=== PATIENT | female | born 1955 | race Caucasian/White ===

== ENCOUNTER 2018-03-14 18:39 | Inpatient (IN) | payer MEDICARE, MEDICAID ==
--- NOTE | 2018-03-14 19:35 | ED Physician Chart ---
ED Chief Complaint/HPI - Patient Information Allergies:: Allergies Allergy/AdvReac Type Severity Reaction Status Date / Time Penicillins Allergy Verified 03/14/18 18:50 Vitals:: Vital Signs - 8 hr 03/14/18 18:54 Temp 98.0 F HR 61 RR 17 BP 182/71 O2 Sat % 97 ED Past Medical History - Past Medical History Past Medical History: Other (artificial heart valve per patient (only on subq heparin)) Family Medical History - Family Member Mother History Unknown: Yes ED Physical Exam - Physical Examination General/Constitutional: Awake, Well-developed, well-nourished, Alert, No distress, GCS 15, Non-toxic appearing, Ambulatory Head: Atraumatic Eyes: Lids, conjuctiva normal, PERRL, EOMI Skin: Nl inspection, No rash, No skin lesions, No ecchymosis, Well hydrated, No lymphadenopathy Other Skin comments:: midline sternotomy scar. ENMT: External ears, nose nl, Nasal exam nl, Lips, teeth, gums nl Neck: Nontender, Full ROM w/o pain, No JVD, No nuchal rigidity, No bruit, No mass, No stridor Respiratory: Nl effort/Exclusion, No Wheeze/Rhonchi/Rales Other Respiratory comments:: faint rales on examination. Cardio Vascular: RRR Other Cardio Vascular comments:: faint systolic murmur. GI: No tenderness/rebounding/guarding, No organomegaly, No hernia, Normal BS's, Nondistended, No mass/bruits, No McBurney tenderness Other GI comments:: large RUQ scar from prior cholecystectomy. : No CVA tenderness Extremities: No tenderness or effusion, Full ROM, normal strength in all extremities, No edema, Normal digits & nails Neuro/Psych: Alert/oriented, DTR's symmetric, Normal sensory exam, Normal motor strength, Judgement/insight normal, Mood normal, Normal gait, No focal deficits Misc: Normal back, No paraspinal tenderness ED Assessment - Assessment General Assessment: EKG from 7:51:22 p.m. reveals sinus bradycardia with a heart rate of 56, probable left atrial enlargement, LVH with secondary repolarization abnormality. Flipped t wave in I, AVL, V4-V5. CXR: cardiomegaly (from my reading) with vascular redistribution. Called and spoke with Dr. Zendejas and presented this patient to him. He will admit her to the hospital. Conversation at 21:35 p.m. ED Septic Shock - . Is Septic Shock (SBP<90, OR Lactate>4 mmol\L) present?: No - <6hrs of presentation: Vital Signs: Vital Signs - 8 hr 03/14/18 18:54 Temp 98.0 F HR 61 RR 17 BP 182/71 O2 Sat % 97 ED Reassessment (Disposition) - Diagnosis Diagnosis:: Cardiomegaly Congestive Heart Failure Urinary Tract Infection Renal insufficiency
[2018-03-14 19:54] LABS: % BASOPHILS 0.8 % (0.0-2.0); % EOSINOPHILS 4.3 % (0.0-5.0); % MONOCYTES 6.4 % (2.0-10.0); % NEUTROPHILS 56.5 % (40.0-80.0); BASOPHILE ABSOLUTE 0.1 Th/cumm (0-0.2); EOSINOPHILE ABSOLUTE 0.3 Th/cmm (0.1-0.4); HEMATOCRIT 29.6 % (41.0-60); HEMOGLOBIN 10.2 gm/dL (12-16); LYMPHOCYTE ABSOLUTE 2.2 Th/cmm (1.5-3.0); MEAN CELL VOLUME 92.3 fl (81-100); MEAN CORPUSCULAR HEMOGLOBIN 31.8 pg (27.0-31.0); MEAN CORPUSCULAR HGB CONC 34.4 pg (28.0-36.0); MEAN PLATELET VOLUME 9.7 fl; MONOCYTE ABSOLUTE 0.4 Th/cmm (0.3-1.0); NEUTROPHILE ABSOLUTE 3.8 Th/cmm (1.8-8.0); PLATELET COUNT 209 Th/cmm (150-400); RED BLOOD COUNT 3.21 Mil/cmm (3.80-5.10); RED CELL DISTRIBUTION WIDTH 11.9 % (11.5-20.0); WHITE BLOOD COUNT 6.8 Th/cmm (4.8-10.8)
[2018-03-14 20:04] LABS: URINE MICROSCOPIC INDICATED? YES; URINE SOURCE CLEAN C
[2018-03-14 20:06] LABS: URINE BILIRUBIN NEGATIVE (NEGATIVE); URINE BLOOD SMALL (NEGATIVE); URINE GLUCOSE (UA) NEGATIVE (NEGATIVE); URINE KETONE NEGATIVE (NEGATIVE); URINE LEUKOCYTE ESTERASE MODERATE (NEGATIVE); URINE NITRATE NEGATIVE (NEGATIVE); URINE PH 6.5 (4.6 - 8.0); URINE PROTEIN 100 mg/dL (NEGATIVE); URINE UROBILINOGEN 0.2 E.U./dL (0.2 - 1.0)
[2018-03-14 20:07] LABS: ALB/GLOB RATIO 1.2 (1.0-1.8); ALBUMIN 3.9 gm/dL (3.7-5.3); CALCIUM SERUM 9.4 mg/dL (8.6-10.3); CARBON DIOXIDE 26.9 mEq/L (21.0-31.0); CREATININE - SERUM 1.6 mg/dL (0.6-1.2); GFR AFRICAN-AMERICAN 42.1 ml/min (>90); GFR NON AFRICAN-AMERICAN 34.8 ml/min; MAGNESIUM 1.9 mg/dL (1.9-2.7); PHOSPHOROUS 3.8 mg/dL (2.5-5.0); POTASSIUM SERUM 3.9 mEq/L (3.5-5.1); TOTAL PROTEIN,SERUM 7.1 gm/dL (6.0-8.3)
[2018-03-14 20:18] LABS: URINE CLARITY HAZY (CLEAR); URINE COLOR YELLOW
[2018-03-14 20:20] LABS: URINE RBC 0-2 /hpf (0-5)
[2018-03-14 20:21] LABS: URINE BACTERIA FEW /hpf (NONE SEEN); URINE EPITHELIAL CELLS OCCASIONAL /lpf (FEW)
[2018-03-14 20:27] LABS: AMPHETAMINE URINE NEGATIVE (NEGATIVE); BARBITURATES URINE NEGATIVE (NEGATIVE); BENZODIAZEPINES QUAL URINE NEGATIVE (NEGATIVE); CANNABINOID THC NEGATIVE (NEGATIVE); COCAINE METABOLITE QUAL URINE NEGATIVE (NEGATIVE); METHADONE URINE NEGATIVE (NEGATIVE); METHAMPHETAMINES QUAL URINE NEGATIVE (NEGATIVE); OPIATES (MORPHINE) QUAL. URINE NEGATIVE (NEGATIVE); PHENCYCLIDINE (PCP) URINE NEGATIVE (NEGATIVE); TRICYCLICS (TCA) QUAL. URINE NEGATIVE (NEGATIVE)
[2018-03-14 20:46] LABS: URINE WBC 25-50 /hpf (0-5)
[2018-03-14] MEDS ORDERED: Sulfamethoxazole/TMP 800/160mg Tab PO ONE (21:26)
[2018-03-14 23:22] VITALS: BP 164/61
[2018-03-14] MEDS: Levofloxacin 250mg/50mL 250 MG/50 ML BAG IV SCH (23:32)
[2018-03-15 06:40] LABS: % BASOPHILS 0.6 % (0.0-2.0); % EOSINOPHILS 4.4 % (0.0-5.0); % LYMPHOCYTES 28.2 % (20.0-50.0); % MONOCYTES 6.5 % (2.0-10.0); % NEUTROPHILS 60.3 % (40.0-80.0); EOSINOPHILE ABSOLUTE 0.3 Th/cmm (0.1-0.4); HEMATOCRIT 28.1 % (41.0-60); HEMOGLOBIN 9.6 gm/dL (12-16); LYMPHOCYTE ABSOLUTE 1.7 Th/cmm (1.5-3.0); MEAN CELL VOLUME 92.8 fl (81-100); MEAN CORPUSCULAR HEMOGLOBIN 31.7 pg (27.0-31.0); MEAN CORPUSCULAR HGB CONC 34.1 pg (28.0-36.0); MEAN PLATELET VOLUME 9.6 fl; MONOCYTE ABSOLUTE 0.4 Th/cmm (0.3-1.0); NEUTROPHILE ABSOLUTE 3.6 Th/cmm (1.8-8.0); PLATELET COUNT 196 Th/cmm (150-400); RED BLOOD COUNT 3.03 Mil/cmm (3.80-5.10); RED CELL DISTRIBUTION WIDTH 11.9 % (11.5-20.0)
[2018-03-15 07:44] LABS: ALB/GLOB RATIO 1.2 (1.0-1.8); ALBUMIN 3.6 gm/dL (3.7-5.3); ANION GAP 12.4 (7.0-16.0); BILIRUBIN,TOTAL 0.7 mg/dL (0.3-1.0); CALCIUM SERUM 9.1 mg/dL (8.6-10.3); CARBON DIOXIDE 23.5 mEq/L (21.0-31.0); CREATININE - SERUM 1.6 mg/dL (0.6-1.2); GFR AFRICAN-AMERICAN 42.1 ml/min (>90); GFR NON AFRICAN-AMERICAN 34.8 ml/min; POTASSIUM SERUM 3.9 mEq/L (3.5-5.1); TOTAL PROTEIN,SERUM 6.5 gm/dL (6.0-8.3)
--- NOTE | 2018-03-15 09:15 | Diagnostic Imaging Report ---
Portable chest x-ray Time: 10 History: Congestive heart failure Allowing for portable technique the heart size is normal. No focal pulmonary parenchymal processes. No hilar or mediastinal abnormalities. Impression: No acute abnormalities.
[2018-03-15] MEDS ORDERED: ROSUVASTATIN CALCIUM 5 MG PO SCH (11:00)
[2018-03-15] MEDS: Aspirin 81mg Chewable Tab PO SCH (12:09)
--- NOTE | 2018-03-15 13:33 | History & Physical ---
ADMIT DATE: 03/15/2018 CHIEF COMPLAINT: Weakness. HISTORY OF PRESENT ILLNESS: This is a 62-year-old female who was admitted through the Emergency Room with chief complaint of generalized weakness. The patient is unable to specify for how many days she has been having generalized weakness. REVIEW OF SYSTEMS: GENERAL: This is a 62-year-old female that appears as stated. Positive weakness. Denies dizziness. Denies fever. HEENT: Head: Denies any headache. Eyes: Denies blurring of vision. Denies eye pain. NECK: Denies neck pain. Denies nuchal rigidity. CHEST: Denies chest pain. Denies palpitation. PULMONARY: Denies coughing. Denies shortness of breath. GASTROINTESTINAL: Denies abdominal pain. Denies diarrhea. Denies constipation. MUSCULOSKELETAL: Denies joint pain. Denies muscle pain. SOCIAL HISTORY: Per the patient, she lives at home with family. Denies nicotine and alcohol use. PSYCHIATRIC HISTORY: Unremarkable. FAMILY HISTORY: Unremarkable. PAST SURGICAL HISTORY: Per the patient, she had an artificial valve replacement 20+ years ago. PAST MEDICAL HISTORY: Includes hypertension, coronary artery disease, hyperlipidemia, and osteoarthritis. PHYSICAL EXAMINATION: VITAL SIGNS: Temperature 97.8, heart rate 62, blood pressure 146/64, respiration of 14, 95% on room air. HEENT: Head is atraumatic and normocephalic. Eyes: Bilateral conjunctivae are clear. Bilateral pupils are equally round and reactive. NECK: Supple. No JVD. CARDIOVASCULAR: S1 and S2, without murmur. PULMONARY: Clear to auscultation. GASTROINTESTINAL: Soft and nontender without guarding. Positive bowel sounds. MUSCULOSKELETAL: No clubbing. No cyanosis noted. ASSESSMENT: 1. Congestive heart failure. 2. Urinary tract infection. 3. Cardiomegaly. 4. Weakness. PLAN: We will admit the patient to Telemetry Unit. We will follow up with the program developer and also we are going to continue antibiotics for the infection. We will do medication reconciliation accordingly. Treatment plans were discussed with the patient's nurse. Treatment plans were discussed with Dr. Zendejas. JOB# [id number]
--- NOTE | 2018-03-15 17:41 | Consultation ---
DATE OF CONSULTATION: 03/15/2018 AGE OF THE PATIENT: 62 years. SEX: Female. RACE: . HISTORY OF PRESENT ILLNESS: This patient was brought in here because of the fact that the patient does have multiple minor problems and a question of whether she has significant coronary artery disease along with renal failure. On direct questioning, the patient at present says she does not have any significant symptoms at the present time. The patient had diabetes for some time and also had a low-grade hypertension. Twenty years ago, the patient had open heart surgery for valvular abnormality for which she had a correction or probably replacement of the wall and had been treated. Since that time, she has been doing better and at present, not much significant problems. On direct questioning, denies any other problem. The patient does not have any significant family members. She lives in a care home. The patient's temperature 97.8 degrees Fahrenheit, blood pressure is 146/64, heart rate 62, respiratory rate 13 per minute, and saturation 95% on room air. On further questioning, patient denies any problem with shortness of breath, chest pains, diarrhea, vomiting or inability to eat. The patient seemed to be well nourished at least at the present time. Cranial nerves seem to be intact. Jugular venous pressure is not raised. The patient has a midsternal lung scar from the previous surgery. Good air entry bilaterally. No rales or rhonchi. Heart sounds S1, S2 normally heard. No S3 or S4 noticed. Abdomen is soft, nontender. Liver margins are not palpable. No signs of ascites. Lower extremities does not reveal any significant edema. The patient is able to mobilize all the 4 extremities. Gross neurological examination does not reveal any focal abnormality. LABORATORY DATA: Biochemical data available as of today reveals sodium 139, potassium 3.9, chloride 107, CO2 content 23.5, glucose 12.4, BUN 18, creatinine 1.6, calculated GFR 34.8. Troponin is within normal limit. BNP had been elevated yesterday 254, which in my opinion is not very significant because of some underlying renal disease. Urine shows questionable some urinary tract infection because of the fact that the WBCs have been reported as 25-50 yesterday. Creatinine has not changed from yesterday; therefore must be stable chronic creatinine. IMPRESSION: 1. Valvular heart disease with status post open heart surgery for correction about 20 years ago. The patient at present is not having any symptoms relating to that. 2. Chronic renal failure, which she is probably for long-term been going on, but would check it. 3. History of diabetes mellitus. 4. History of hypertension. PLAN AND SUGGESTION: I would suggest that maybe we can do an ultrasound of the abdomen and pelvis so as to evaluate kidneys and bladder as to know what is the baseline, so that we know if there is a progression of renal disease. Otherwise, at present from the renal point of view there is not much to be done. BNP is mildly elevated, but that can happen due to some loss of renal function from probably previous injury or disease process. JOB# [id number]
--- NOTE | 2018-03-15 21:33 | Consultation ---
DATE OF CONSULTATION: 03/15/[address] Zendejas. HISTORY AND PHYSICAL: This is a 62-year-old female patient who was recently admitted to [facility] with chest pain. According to the patient, there was no evidence of ischemia. At this time, the patient was discharge. The patient is brought again to [facility] complaining of generalized weakness, and shortness of breath. PAST MEDICAL HISTORY: Congestive heart failure, diastolic dysfunction, angina, coronary artery bypass, anemia, hyperlipidemia. FAMILY HISTORY: Unremarkable. SOCIAL HISTORY: No history of smoking, alcohol abuse. ALLERGIES: None. PHYSICAL EXAMINATION: VITAL SIGNS: Blood pressure 120/80, pulse 70, respirations 20. HEAD: Normocephalic. No lumps or bumps. EYES: Pupils equal, reactive to light. Fundi show AV nicking, sclerae white, conjunctivae pink. NECK: Carotid 2+. Normal upstroke. JVD flat. Thyroid not palpable. Lymph nodes not palpable. CHEST: Shows increased AP diameter. No kyphosis, scoliosis. LUNGS: Bilateral bronchovesicular breath sounds. HEART: PMI fifth intercostal space with lateral to midclavicular line. S1, S2, S3, S4, soft systolic murmur. ABDOMEN: Soft. Liver, spleen not palpable. No organomegaly. Bowel sounds active. NEUROLOGIC: Unremarkable. EXTREMITIES: Peripheral pulse is 2+. No pedal edema. CLINICAL IMPRESSION: Congestive heart failure, diastolic dysfunction, acute urinary tract infection, cardiomegaly, angina, coronary artery bypass, anemia, hyperlipidemia. PLAN: Admit the patient. We will get echocardiogram for left ventricular function. Continue on Lasix and monitor the patient on telemetry. JOB# [id number]
[2018-03-15] MEDS: Levofloxacin 250mg/50mL 250 MG/50 ML BAG IV SCH (23:17)
[2018-03-16 05:01] LABS: ANION GAP 9.8 (7.0-16.0); CALCIUM SERUM 9.2 mg/dL (8.6-10.3); CREATININE - SERUM 1.9 mg/dL (0.6-1.2); GFR AFRICAN-AMERICAN 34.6 ml/min (>90); GFR NON AFRICAN-AMERICAN 28.6 ml/min; POTASSIUM SERUM 3.8 mEq/L (3.5-5.1)
[2018-03-16] MEDS: Aspirin 81mg Chewable Tab PO SCH (08:19)
--- NOTE | 2018-03-16 10:29 | General Progress Note ---
Subjective - Review of Systems Events since last encounter: patient awake c/o sob + weakness Objective - Results Result Diagrams: 03/15/18 06:30 03/16/18 04:35 Recent Labs: Laboratory Last Values WBC 6.0 Th/cmm (4.8-10.8) 03/15/18 06:30 RBC 3.03 Mil/cmm (3.80-5.10) L 03/15/18 06:30 Hgb 9.6 gm/dL (12-16) L 03/15/18 06:30 Hct 28.1 % (41.0-60) L 03/15/18 06:30 MCV 92.8 fl (81-100) 03/15/18 06:30 MCH 31.7 pg (27.0-31.0) H 03/15/18 06:30 MCHC Differential 34.1 pg (28.0-36.0) 03/15/18 06:30 RDW 11.9 % (11.5-20.0) 03/15/18 06:30 Plt Count 196 Th/cmm (150-400) 03/15/18 06:30 MPV 9.6 fl 03/15/18 06:30 Neutrophils % 60.3 % (40.0-80.0) 03/15/18 06:30 Lymphocytes % 28.2 % (20.0-50.0) 03/15/18 06:30 Monocytes % 6.5 % (2.0-10.0) 03/15/18 06:30 Eosinophils % 4.4 % (0.0-5.0) 03/15/18 06:30 Basophils % 0.6 % (0.0-2.0) 03/15/18 06:30 Sodium 138 mEq/L (136-145) 03/16/18 04:35 Potassium 3.8 mEq/L (3.5-5.1) 03/16/18 04:35 Chloride 107 mEq/L (98-107) 03/16/18 04:35 Carbon Dioxide 25.0 mEq/L (21.0-31.0) 03/16/18 04:35 Anion Gap 9.8 (7.0-16.0) 03/16/18 04:35 BUN 21 mg/dL (7-25) 03/16/18 04:35 Creatinine 1.9 mg/dL (0.6-1.2) H 03/16/18 04:35 Est GFR ( Amer) 34.6 ml/min (>90) 03/16/18 04:35 Est GFR (Non-Af Amer) 28.6 ml/min 03/16/18 04:35 BUN/Creatinine Ratio 11.1 03/16/18 04:35 Glucose 103 mg/dL (70-105) 03/16/18 04:35 Calcium 9.2 mg/dL (8.6-10.3) 03/16/18 04:35 Phosphorus 3.8 mg/dL (2.5-5.0) 03/14/18 19:42 Magnesium 1.9 mg/dL (1.9-2.7) 03/14/18 19:42 Total Bilirubin 0.7 mg/dL (0.3-1.0) 03/15/18 06:30 AST 18 U/L (13-39) 03/15/18 06:30 ALT 9 U/L (7-52) 03/15/18 06:30 Alkaline Phosphatase 54 U/L (34-104) 03/15/18 06:30 Troponin I 0.01 ng/mL (0.01-0.05) 03/15/18 15:11 B-Natriuretic Peptide 254.0 pg/mL (5.0-100.0) H 03/14/18 19:42 Total Protein 6.5 gm/dL (6.0-8.3) 03/15/18 06:30 Albumin 3.6 gm/dL (3.7-5.3) L 03/15/18 06:30 Globulin 2.9 gm/dL 03/15/18 06:30 Albumin/Globulin Ratio 1.2 (1.0-1.8) 03/15/18 06:30 Triglycerides 219 mg/dL (<150) H 03/15/18 06:30 Cholesterol 167 mg/dL (<200) 03/15/18 06:30 LDL Cholesterol Direct 92 mg/dL (75-193) 03/15/18 06:30 HDL Cholesterol 38 mg/dL (23-92) 03/15/18 06:30 Urine Source CLEAN C 03/14/18 19:49 Urine Color YELLOW 03/14/18 19:49 Urine Clarity HAZY (CLEAR) 03/14/18 19:49 Urine pH 6.5 (4.6 - 8.0) 03/14/18 19:49 Ur Specific [place] 1.010 (1.005-1.030) 03/14/18 19:49 Urine Protein 100 mg/dL (NEGATIVE) H 03/14/18 19:49 Urine Glucose (UA) NEGATIVE mg/dL (NEGATIVE) 03/14/18 19:49 Urine Ketones NEGATIVE mg/dL (NEGATIVE) 03/14/18 19:49 Urine Blood SMALL (NEGATIVE) H 03/14/18 19:49 Urine Nitrate NEGATIVE (NEGATIVE) 03/14/18 19:49 Urine Bilirubin NEGATIVE (NEGATIVE) 03/14/18 19:49 Urine Urobilinogen 0.2 E.U./dL (0.2 - 1.0) 03/14/18 19:49 Ur Leukocyte Esterase MODERATE (NEGATIVE) H 03/14/18 19:49 Urine RBC 0-2 /hpf (0-5) 03/14/18 19:49 Urine WBC 25-50 /hpf (0-5) H 03/14/18 19:49 Ur Epithelial Cells OCCASIONAL /lpf (FEW) 03/14/18 19:49 Urine Bacteria FEW /hpf (NONE SEEN) 03/14/18 19:49 Urine Mucus FEW /lpf (FEW) 03/14/18 19:49 Urine Opiates Screen NEGATIVE (NEGATIVE) 03/14/18 19:49 Urine Methadone Screen NEGATIVE (NEGATIVE) 03/14/18 19:49 Ur Barbiturates Screen NEGATIVE (NEGATIVE) 03/14/18 19:49 Ur Tricyclics Screen NEGATIVE (NEGATIVE) 03/14/18 19:49 Ur Phencyclidine Scrn NEGATIVE (NEGATIVE) 03/14/18 19:49 Amphetamines Screen NEGATIVE (NEGATIVE) 03/14/18 19:49 U Methamphetamines Scrn NEGATIVE (NEGATIVE) 03/14/18 19:49 U Benzodiazepines Scrn NEGATIVE (NEGATIVE) 03/14/18 19:49 U Cocaine Metab Screen NEGATIVE (NEGATIVE) 03/14/18 19:49 U Cannabinoids Screen NEGATIVE (NEGATIVE) 03/14/18 19:49 - Physical Exam Vitals and I&O: Vital Signs Temp 98 F 03/16/18 04:00 Pulse 54 03/16/18 08:20 Resp 11 03/16/18 04:00 BP 144/59 03/16/18 08:20 Pulse Ox 95 03/16/18 04:00 Intake & Output 03/15/18 03/16/18 03/16/18 18:59 06:59 18:59 Intake Total 750 150 Balance 750 150 Weight (lbs) 60.781 kg 60.781 kg Intake: Intake, IV Amount 50 Levofloxacin 250mg/50mL 50 250 mg In 50 ml @ 50 mls/ hr IV Q24HR [facility] Rx#: [id number] Oral 750 100 Other: # Voids 3 2 # Bowel Movements 0 Weight Source Bedscale Bedscale Active Medications: Current Medications Acetaminophen (Tylenol) 650 mg PO Q4HR PRN PRN Reason: HEADACHE OR MILD PAIN Stop: 05/14/18 10:51 Alprazolam (Xanax) 0.25 mg PO Q12H PRN; Protocol PRN Reason: Anxiety Stop: 05/14/18 10:51 Amlodipine Besylate (Norvasc) 10 mg PO DAILY [facility] Stop: 05/14/18 10:59 Last Admin: 03/16/18 08:19 Dose: 10 mg Aspirin (Aspirin Chewable) 81 mg PO DAILY [facility] Stop: 05/14/18 10:59 Last Admin: 03/16/18 08:19 Dose: 81 mg Docusate Sodium (Colace) 100 mg PO DAILY [facility] Stop: 05/14/18 10:59 Last Admin: 03/16/18 08:19 Dose: 100 mg Levofloxacin (Levaquin Pb) 250 mg in 50 mls @ 50 mls/hr IV Q24HR [facility] Stop: 05/13/18 23:01 Last Infusion: 03/16/18 00:20 Dose: Infused Metoprolol Tartrate (Lopressor) 25 mg PO TID [facility] Stop: 05/14/18 13:59 Last Admin: 03/16/18 08:20 Dose: Not Given Nitroglycerin (Nitrostat) 0.4 mg SL Q5MIN PRN PRN Reason: Chest Pain Stop: 05/14/18 10:51 Simvastatin (Zocor) 20 mg PO HS [facility] Stop: 05/14/18 20:59 Last Admin: 03/15/18 21:08 Dose: 20 mg Assessment/Plan - Problem List Patient Problems: All Active Problems WEAKNESS WITH CONFUSION (Acute)
--- NOTE | 2018-03-16 16:26 | Cardiology ---
03/15/[address] Zendejas. M-MODE ECHOCARDIOGRAM: Mitral valve, anterior leaflet of mitral valve shows normal excursion, EF velocity. Posterior leaflet of the mitral valve shows normal excursion. Left ventricular posterior wall shows increased thickness, normal excursion. Interventricular septum shows increased thickness, normal excursion, hypertrophy of the left ventricle, ejection fraction 51%. Left atrium enlarged 4.5 cm. Aortic root shows normal dimension, normal excursion of aortic leaflets. CONCLUSION: Minimal mitral annulus calcification, hypertrophy of the left ventricle, left atrial enlargement, ejection fraction 51%. 2D ECHO: Long axis view showed normal-sized left ventricle with hypertrophy of the left ventricle, minimum ___ calcification. Left atrium enlarged. Aortic root shows normal dimension, normal excursion of aortic leaflets. Short axis view of mitral valve shows minimal mitral annulus calcification. Short axis view of aortic valve normal. Apical four chamber view showed normal-sized left ventricle with hypertrophy of the left ventricle. Left atrium enlarged. Right ventricular cavity normal. Right atrial enlargement. CONCLUSION: Biatrial enlargement. Hypertrophy of the left ventricle, ejection fraction 51%. Right ventricular systolic pressure 28 mmHg. Doppler study shows prominent area consistent with poor compliance of left ventricle with moderate mitral regurgitation, moderate tricuspid regurgitation, right ventricular systolic pressure 28 mmHg. [facility]# [id number]
[2018-03-16] MEDS: Levofloxacin 250mg/50mL 250 MG/50 ML BAG IV SCH (23:31)
[2018-03-17] MEDS: Aspirin 81mg Chewable Tab PO SCH (09:29)
--- NOTE | 2018-03-17 15:04 | General Progress Note ---
Subjective - Review of Systems Events since last encounter: patient awake in no distress Objective - Results Result Diagrams: 03/15/18 06:30 03/16/18 04:35 Recent Labs: Laboratory Last Values WBC 6.0 Th/cmm (4.8-10.8) 03/15/18 06:30 RBC 3.03 Mil/cmm (3.80-5.10) L 03/15/18 06:30 Hgb 9.6 gm/dL (12-16) L 03/15/18 06:30 Hct 28.1 % (41.0-60) L 03/15/18 06:30 MCV 92.8 fl (81-100) 03/15/18 06:30 MCH 31.7 pg (27.0-31.0) H 03/15/18 06:30 MCHC Differential 34.1 pg (28.0-36.0) 03/15/18 06:30 RDW 11.9 % (11.5-20.0) 03/15/18 06:30 Plt Count 196 Th/cmm (150-400) 03/15/18 06:30 MPV 9.6 fl 03/15/18 06:30 Neutrophils % 60.3 % (40.0-80.0) 03/15/18 06:30 Lymphocytes % 28.2 % (20.0-50.0) 03/15/18 06:30 Monocytes % 6.5 % (2.0-10.0) 03/15/18 06:30 Eosinophils % 4.4 % (0.0-5.0) 03/15/18 06:30 Basophils % 0.6 % (0.0-2.0) 03/15/18 06:30 Sodium 138 mEq/L (136-145) 03/16/18 04:35 Potassium 3.8 mEq/L (3.5-5.1) 03/16/18 04:35 Chloride 107 mEq/L (98-107) 03/16/18 04:35 Carbon Dioxide 25.0 mEq/L (21.0-31.0) 03/16/18 04:35 Anion Gap 9.8 (7.0-16.0) 03/16/18 04:35 BUN 21 mg/dL (7-25) 03/16/18 04:35 Creatinine 1.9 mg/dL (0.6-1.2) H 03/16/18 04:35 Est GFR ( Amer) 34.6 ml/min (>90) 03/16/18 04:35 Est GFR (Non-Af Amer) 28.6 ml/min 03/16/18 04:35 BUN/Creatinine Ratio 11.1 03/16/18 04:35 Glucose 103 mg/dL (70-105) 03/16/18 04:35 Calcium 9.2 mg/dL (8.6-10.3) 03/16/18 04:35 Phosphorus 3.8 mg/dL (2.5-5.0) 03/14/18 19:42 Magnesium 1.9 mg/dL (1.9-2.7) 03/14/18 19:42 Total Bilirubin 0.7 mg/dL (0.3-1.0) 03/15/18 06:30 AST 18 U/L (13-39) 03/15/18 06:30 ALT 9 U/L (7-52) 03/15/18 06:30 Alkaline Phosphatase 54 U/L (34-104) 03/15/18 06:30 Troponin I 0.01 ng/mL (0.01-0.05) 03/15/18 15:11 B-Natriuretic Peptide 254.0 pg/mL (5.0-100.0) H 03/14/18 19:42 Total Protein 6.5 gm/dL (6.0-8.3) 03/15/18 06:30 Albumin 3.6 gm/dL (3.7-5.3) L 03/15/18 06:30 Globulin 2.9 gm/dL 03/15/18 06:30 Albumin/Globulin Ratio 1.2 (1.0-1.8) 03/15/18 06:30 Triglycerides 219 mg/dL (<150) H 03/15/18 06:30 Cholesterol 167 mg/dL (<200) 03/15/18 06:30 LDL Cholesterol Direct 92 mg/dL (75-193) 03/15/18 06:30 HDL Cholesterol 38 mg/dL (23-92) 03/15/18 06:30 Urine Source CLEAN C 03/14/18 19:49 Urine Color YELLOW 03/14/18 19:49 Urine Clarity HAZY (CLEAR) 03/14/18 19:49 Urine pH 6.5 (4.6 - 8.0) 03/14/18 19:49 Ur Specific [place] 1.010 (1.005-1.030) 03/14/18 19:49 Urine Protein 100 mg/dL (NEGATIVE) H 03/14/18 19:49 Urine Glucose (UA) NEGATIVE mg/dL (NEGATIVE) 03/14/18 19:49 Urine Ketones NEGATIVE mg/dL (NEGATIVE) 03/14/18 19:49 Urine Blood SMALL (NEGATIVE) H 03/14/18 19:49 Urine Nitrate NEGATIVE (NEGATIVE) 03/14/18 19:49 Urine Bilirubin NEGATIVE (NEGATIVE) 03/14/18 19:49 Urine Urobilinogen 0.2 E.U./dL (0.2 - 1.0) 03/14/18 19:49 Ur Leukocyte Esterase MODERATE (NEGATIVE) H 03/14/18 19:49 Urine RBC 0-2 /hpf (0-5) 03/14/18 19:49 Urine WBC 25-50 /hpf (0-5) H 03/14/18 19:49 Ur Epithelial Cells OCCASIONAL /lpf (FEW) 03/14/18 19:49 Urine Bacteria FEW /hpf (NONE SEEN) 03/14/18 19:49 Urine Mucus FEW /lpf (FEW) 03/14/18 19:49 Urine Opiates Screen NEGATIVE (NEGATIVE) 03/14/18 19:49 Urine Methadone Screen NEGATIVE (NEGATIVE) 03/14/18 19:49 Ur Barbiturates Screen NEGATIVE (NEGATIVE) 03/14/18 19:49 Ur Tricyclics Screen NEGATIVE (NEGATIVE) 03/14/18 19:49 Ur Phencyclidine Scrn NEGATIVE (NEGATIVE) 03/14/18 19:49 Amphetamines Screen NEGATIVE (NEGATIVE) 03/14/18 19:49 U Methamphetamines Scrn NEGATIVE (NEGATIVE) 03/14/18 19:49 U Benzodiazepines Scrn NEGATIVE (NEGATIVE) 03/14/18 19:49 U Cocaine Metab Screen NEGATIVE (NEGATIVE) 03/14/18 19:49 U Cannabinoids Screen NEGATIVE (NEGATIVE) 03/14/18 19:49 - Physical Exam Vitals and I&O: Vital Signs Temp 96.8 F 03/17/18 11:56 Pulse 72 03/17/18 14:43 Resp 18 03/17/18 11:56 BP 150/80 07/23/18 14:43 Pulse Ox 97 03/17/18 11:56 Intake & Output 03/16/18 03/17/18 03/17/18 18:59 06:59 18:59 Intake Total 700 350 300 Balance 700 350 300 Weight (lbs) 60.781 kg 62.505 kg 62.505 kg Intake: Oral 700 300 300 Other 50 Other: # Voids 3 2 Weight Source Bedscale Bedscale Bedscale Active Medications: Current Medications Acetaminophen (Tylenol) 650 mg PO Q4HR PRN PRN Reason: HEADACHE OR MILD PAIN Stop: 05/14/18 10:51 Alprazolam (Xanax) 0.25 mg PO Q12H PRN; Protocol PRN Reason: Anxiety Stop: 05/14/18 10:51 Amlodipine Besylate (Norvasc) 10 mg PO DAILY [facility] Stop: 05/14/18 10:59 Last Admin: 03/17/18 09:28 Dose: Not Given Aspirin (Aspirin Chewable) 81 mg PO DAILY [facility] Stop: 05/14/18 10:59 Last Admin: 03/17/18 09:29 Dose: Not Given Docusate Sodium (Colace) 100 mg PO DAILY [facility] Stop: 05/14/18 10:59 Last Admin: 03/17/18 09:29 Dose: Not Given Levofloxacin (Levaquin Pb) 250 mg in 50 mls @ 50 mls/hr IV Q24HR [facility] Stop: 05/13/18 23:01 Last Admin: 03/16/18 23:31 Dose: 50 mls/hr Metoprolol Tartrate (Lopressor) 25 mg PO TID [facility] Stop: 05/14/18 13:59 Last Admin: 03/17/18 14:43 Dose: 25 mg Nitroglycerin (Nitrostat) 0.4 mg SL Q5MIN PRN PRN Reason: Chest Pain Stop: 05/14/18 10:51 Simvastatin (Zocor) 20 mg PO HS [facility] Stop: 05/14/18 20:59 Last Admin: 03/16/18 20:58 Dose: 20 mg Assessment/Plan - Problem List Patient Problems: All Active Problems WEAKNESS WITH CONFUSION (Acute)
== END 2018-03-17 17:34 | DRG 291 ==
LOC: ER 18:39 → ICU 21:50 → TELE 03-16 12:34
PROVIDERS: ADMIT Internal Medicine; ATTEND Internal Medicine
DX: I13.0 Hypertensive heart and chronic kidney disease with heart failure and stage 1 through stage 4 chronic kidney disease, or unspecified chronic kidney disease (principal); I50.31 Acute diastolic (congestive) heart failure; N39.0 Urinary tract infection, site not specified; E78.5 Hyperlipidemia, unspecified; M19.90 Unspecified osteoarthritis, unspecified site; E11.22 Type 2 diabetes mellitus with diabetic chronic kidney disease; N18.9 Chronic kidney disease, unspecified; I25.119 Atherosclerotic heart disease of native coronary artery with unspecified angina pectoris; D64.9 Anemia, unspecified; Z95.1 Presence of aortocoronary bypass graft; Z88.0 Allergy status to penicillin
CPT/HCPCS: 36415-UA; 71045-TC; 80048-TC; 80053-TC; 80061-TC; 80307; 81001-TC; 83735-TC; 83880-TC; 84100-TC; 84484-TC; 85025-TC; 87086-90; 93005; J1956; Z7610

== ENCOUNTER 2018-03-28 14:12 | Inpatient (IN) | payer MEDICARE, OTHER ==
--- NOTE | 2018-03-28 14:41 | ED Physician Chart ---
ED Chief Complaint/HPI - Patient Information Date Seen:: 03/28/18 Time Seen:: 14:15 Chief Complaint:: anxious History of Present Illness:: 62 yr old female with hx of htn on amylodipine and metoprolol from shelter BIB paramedics with anxiety confusion pt been a resident of the shelter for the last 3.5 mos pt here awake alert following most commands and denies dizziness headache fever chest or abd pain Allergies:: Allergies Allergy/AdvReac Type Severity Reaction Status Date / Time Penicillins Allergy Verified 03/14/18 18:50 ED Review of Systems - Review of Systems General/Constitutional: No fever, No chills, No weight loss, No weakness, No diaphoresis, No edema, No loss of appetite Skin: No skin lesions, No rash, No bruising Head: No headache, No light-headedness Eyes: No loss of vision, No pain, No diplopia ENT: No earache, No nasal drainage, No sore throat, No tinnitus Neck: No neck pain, No swelling, No thyromegaly, No stiffness, No mass noted Cardio Vascular: No chest pain, No palpitations, No PND, No orthopnea, No edema Pulmonary: No SOB, No cough, No sputum, No wheezing GI: No nausea, No vomiting, No diarrhea, No pain, No melena, No hematochezia, No constipation, No hematemesis G/U: No dysuria, No frequency, No hematuria Musculoskeletal: No bone or joint pain, No back pain, No muscle pain Endocrine: No polyuria, No polydipsia Psychiatric: Anxiety Hematopoietic: No bruising, No lymphadenopathy Allergic/Immuno: No urticaria, No angioedema Neurological: No syncope, No focal symptoms, No weakness, No paresthesia, No headache, No seizure, No dizziness, No confusion, No vertigo ED Past Medical History - Past Medical History Past Medical History: HTN, CAD (anemia difficulty walking weakness ), CHF, Dyslipidemia, Arthritis (cardiomegaly difficulty walking muscle weakness) Family Medical History - Family Member Mother History Unknown: Yes ED Physical Exam - Physical Examination General/Constitutional: Well-developed, well-nourished, Alert Head: Atraumatic Eyes: Lids, conjuctiva normal, PERRL, EOMI Skin: Nl inspection, No rash, No skin lesions, No ecchymosis, Well hydrated, No lymphadenopathy ENMT: External ears, nose nl, Nasal exam nl, Lips, teeth, gums nl Neck: Nontender, Full ROM w/o pain, No JVD, No nuchal rigidity, No bruit, No mass, No stridor Respiratory: Nl effort/Exclusion, Clear to Auscultation, No Wheeze/Rhonchi/Rales Cardio Vascular: RRR, No murmur, gallop, rubs, NL S1 S2 GI: No tenderness/rebounding/guarding, No organomegaly, No hernia, Normal BS's, Nondistended, No mass/bruits, No McBurney tenderness : No CVA tenderness Extremities: No tenderness or effusion, Full ROM, normal strength in all extremities, No edema, Normal digits & nails Neuro/Psych: Alert/oriented, DTR's symmetric, Normal sensory exam, Normal motor strength, Judgement/insight normal, Mood normal, Normal gait, No focal deficits Misc: Normal back, No paraspinal tenderness ED Assessment - Assessment General Assessment: essential htn out of control anxiety agitation ED Septic Shock - . Is Septic Shock (SBP<90, OR Lactate>4 mmol\L) present?: No ED Reassessment (Disposition) - Diagnosis Diagnosis:: anxiety elevated bp agitation for kianna psych eval
--- NOTE | 2018-03-28 14:54 | Diagnostic Imaging Report ---
CHEST X-RAY: AP view INDICATION: Shortness of breath COMPARISON: None FINDINGS: There is evidence of prior median sternotomy. There is no focal consolidation or pleural effusions cardiomegaly is noted. Degenerative changes of the spine are noted. Old right fifth rib fracture is noted. IMPRESSION: No focal consolidation identified. Evidence of prior median sternotomy Cardiomegaly.
[2018-03-28 14:55] LABS: % EOSINOPHILS 2.6 % (0.0-5.0); % LYMPHOCYTES 23.4 % (20.0-50.0); % MONOCYTES 4.2 % (2.0-10.0); % NEUTROPHILS 68.8 % (40.0-80.0); BASOPHILE ABSOLUTE 0.1 Th/cumm (0-0.2); EOSINOPHILE ABSOLUTE 0.2 Th/cmm (0.1-0.4); HEMATOCRIT 34.6 % (41.0-60); HEMOGLOBIN 11.7 gm/dL (12-16); LYMPHOCYTE ABSOLUTE 1.9 Th/cmm (1.5-3.0); MEAN CELL VOLUME 92.9 fl (81-100); MEAN CORPUSCULAR HEMOGLOBIN 31.4 pg (27.0-31.0); MEAN CORPUSCULAR HGB CONC 33.8 pg (28.0-36.0); MEAN PLATELET VOLUME 9.2 fl; MONOCYTE ABSOLUTE 0.3 Th/cmm (0.3-1.0); NEUTROPHILE ABSOLUTE 5.5 Th/cmm (1.8-8.0); PLATELET COUNT 217 Th/cmm (150-400); RED BLOOD COUNT 3.73 Mil/cmm (3.80-5.10); RED CELL DISTRIBUTION WIDTH 12.1 % (11.5-20.0)
[2018-03-28 15:09] LABS: ALB/GLOB RATIO 1.2 (1.0-1.8); ALBUMIN 4.5 gm/dL (3.7-5.3); ANION GAP 10.5 (7.0-16.0); CALCIUM SERUM 9.9 mg/dL (8.6-10.3); CARBON DIOXIDE 27.5 mEq/L (21.0-31.0); CREATININE - SERUM 1.8 mg/dL (0.6-1.2); GFR AFRICAN-AMERICAN 36.8 ml/min (>90); GFR NON AFRICAN-AMERICAN 30.4 ml/min; TOTAL PROTEIN,SERUM 8.2 gm/dL (6.0-8.3); URINE SOURCE CLEAN C
[2018-03-28 15:11] LABS: URINE BILIRUBIN NEGATIVE (NEGATIVE); URINE BLOOD TRACE (NEGATIVE); URINE COLOR YELLOW; URINE GLUCOSE (UA) NEGATIVE (NEGATIVE); URINE KETONE NEGATIVE (NEGATIVE); URINE LEUKOCYTE ESTERASE MODERATE (NEGATIVE); URINE MICROSCOPIC INDICATED? YES; URINE NITRATE POSITIVE (NEGATIVE); URINE PH 6.5 (4.6 - 8.0); URINE PROTEIN >=300 mg/dL (NEGATIVE); URINE UROBILINOGEN 0.2 E.U./dL (0.2 - 1.0)
[2018-03-28 15:17] LABS: URINE CLARITY HAZY (CLEAR)
[2018-03-28 15:24] LABS: URINE BACTERIA 3+ /hpf (NONE SEEN); URINE EPITHELIAL CELLS MODERATE /lpf (FEW)
[2018-03-28] MEDS ORDERED: Sodium Chloride 0.9% 1,000 ML IV ONE ×2 (15:34→17:55)
[2018-03-28] MEDS ORDERED: Levofloxacin 500mg/100mL 500 MG/100 ML BAG IV ONE ×2 (15:35→15:41)
[2018-03-28 17:13] LABS: AMPHETAMINE URINE NEGATIVE (NEGATIVE); BARBITURATES URINE NEGATIVE (NEGATIVE); BENZODIAZEPINES QUAL URINE NEGATIVE (NEGATIVE); CANNABINOID THC NEGATIVE (NEGATIVE); COCAINE METABOLITE QUAL URINE NEGATIVE (NEGATIVE); METHADONE URINE NEGATIVE (NEGATIVE); METHAMPHETAMINES QUAL URINE NEGATIVE (NEGATIVE); OPIATES (MORPHINE) QUAL. URINE NEGATIVE (NEGATIVE); PHENCYCLIDINE (PCP) URINE NEGATIVE (NEGATIVE); TRICYCLICS (TCA) QUAL. URINE NEGATIVE (NEGATIVE)
[2018-03-28 21:31] VITALS: BP 142/68
[2018-03-29] MEDS: Aspirin 81mg Chewable Tab PO SCH (09:01)
[2018-03-29] MEDS: Atorvastatin Calcium 10 MG TAB PO SCH (09:51)
--- NOTE | 2018-03-29 09:57 | History & Physical ---
ADMIT DATE: 03/28/2018 CHIEF COMPLAINT: Agitation. HISTORY OF PRESENT ILLNESS: This is a 62-year-old female who was admitted from a alf facility to the Emergency Room of [facility] due to increased agitation and anxiety. REVIEW OF SYSTEMS: GENERAL: This is a 62-year-old female that appears older than stated. Denies any weakness. Denies any weight loss. HEAD: Denies headache. Denies dizziness. EYES: Denies eye pain. Denies blurring of vision. NECK: Denies neck pain. Denies nuchal rigidity. CHEST: Denies chest pain. Denies palpitation. PULMONARY: Denies coughing. Denies shortness of breath. GASTROINTESTINAL: Denies abdominal pain. Denies constipation. Denies diarrhea. MUSCULOSKELETAL: Denies joint pain. Denies muscle pain. SOCIAL HISTORY: The patient lives in a alf facility prior to hospitalization. PAST MEDICAL HISTORY: Includes hypertension, coronary artery disease, hyperlipidemia, osteoarthritis, and anemia. FAMILY HISTORY: Unremarkable. PAST SURGICAL HISTORY: Unremarkable. PSYCHIATRIC HISTORY: Questionable bipolar versus schizophrenia. PHYSICAL EXAMINATION: VITAL SIGNS: Temperature 98.7, heart rate 69, blood pressure 169/76, respirations 20, and 100% on room air. HEENT: Head is atraumatic, normocephalic. Eyes: Bilateral conjunctivae are clear. Bilateral pupils are equally round and reactive. NECK: Supple. No JVD. CARDIOVASCULAR: S1 and S2, without murmur. PULMONARY: Clear to auscultation. GASTROINTESTINAL: Soft and nontender without guarding. Positive bowel sounds. MUSCULOSKELETAL: No clubbing. No cyanosis noted. ASSESSMENT: 1. Psychosis. 2. Hypertension. 3. Anxiety. 4. Osteoarthritis. 5. Anemia. 6. Hyperlipidemia. 7. Coronary artery disease. PLAN: We will admit the patient to Psychiatric Unit. We will do medication reconciliation accordingly. We will follow up with a psychiatrist. We are also going to start the patient on clonidine 0.1 mg p.o. every 8 hours as needed for systolic blood pressure above 150. Treatment plans were discussed with the patient's nurse. Treatment plans were discussed with Dr. Zendejas. JOB# [id number]
[2018-03-29 20:43] LABS: A1C % 7.1 % (4.0-6.0)
--- NOTE | 2018-03-29 20:49 | Psychiatric Evaluation ---
DATE OF SERVICE: 03/28/2018 PSYCHIATRIC INITIAL EVALUATION AND MENTAL STATUS EXAMINATION PATIENT'S AGE: 62. SEX: Female. PHYSICIAN: Dr. Dixon. CHIEF COMPLAINT: Agitation and trying to leave the facility. HISTORY OF PRESENT ILLNESS: The patient is a 62-year-old female who was transferred from [facility] to [facility] because of increased agitation as well as striking out behavior and tries to leave the facility without knowing where she is going. Chart reviewed and patient interviewed. Also, I got help from staff with translation from French to Polish and vice versa because the patient speaks only French. The patient said that she moved to [facility] about 2 weeks ago and later on she said 4 weeks ago. She said that she does not know where she moved, but she before was living with some friends. She seems to be slightly confused about the dates and about the timing and the reasons of her move. She said that her friends does not know where she is at. She also said that she is , but from her and that she has 3 children from her first and that she is not in touch with them. The patient added that she has been angry and lately has been in a depressed mood. Also, it seems that she has been easily agitated and has mood swings. The patient was guarded in regard to saying the reasons why she moved to the hospital in [facility]. The patient was striking out at staff in [facility] and she was easily agitated and irritable. Currently, the patient seems to be slightly calmer, but seemed that she has mood swings and can be easily agitated. PAST PSYCHIATRIC HISTORY: The patient denies any history of psychiatric treatment. PAST MEDICAL HISTORY: The patient has hypertension. FAMILY PSYCHIATRIC HISTORY: The patient denies. SOCIAL HISTORY: The patient said that she is for the second time. She has 3 children from her first marriage. The patient is . The patient denies alcohol or any street drug use. She denies any legal issues or abuse issues. She is unemployed, on disability. ALLERGIES: PENICILLIN. MENTAL STATUS EXAMINATION: The patient appears slightly older than her stated age. Disheveled. Anxious. Slightly suspicious and seems to be paranoid. The patient denies any auditory or visual hallucinations, but seems to be slightly paranoid and delusional. She denies any suicidal or homicidal ideations. The patient is alert and oriented to time, place, person, and situation. Intact immediate, recent and remote memories. Poor insight and poor judgment. ASSESSMENT: PRIMARY DIAGNOSIS: Depressive disorder, unspecified, with psychotic features. MEDICAL DIAGNOSIS: Hypertension. TREATMENT PLAN: We will monitor the patient's behavior and condition closely. We will start Abilify and we will adjust the dose. Also, we will try to get more information about family and more information about her history. ESTIMATED LENGTH OF STAY: 5-7 days. THE PATIENT'S STRENGTHS AND WEAKNESSES: The patient's strength is that she is in a relatively fair health. Weakness is this patient is slightly confused and a poor historian. AFTER DISCHARGE PLAN: The patient might need placement or she will return to [facility]. Outpatient treatment and followup will continue as an outpatient. CRITERIA FOR DISCHARGE: We will stabilize psychotropic medications and we will establish outpatient treatment plans. JOB# [id number]
[2018-03-30] MEDS: Aspirin 81mg Chewable Tab PO SCH (09:16)
[2018-03-30] MEDS: Atorvastatin Calcium 10 MG TAB PO SCH (09:16)
[2018-03-30] MEDS: Sulfamethoxazole/TMP 800/160mg Tab PO SCH (16:23)
[2018-03-31] MEDS ORDERED: Probiotic Screen MC PRN (09:26)
[2018-03-31] MEDS: Aspirin 81mg Chewable Tab PO SCH (09:49)
[2018-03-31] MEDS: Atorvastatin Calcium 10 MG TAB PO SCH (09:49)
[2018-03-31] MEDS: Sulfamethoxazole/TMP 800/160mg Tab PO SCH ×2 (09:49→17:42)
[2018-03-31] MEDS: Lactobacillus Rhamnosus GG 15 Billion CFU CAP.SPRINK PO SCH (14:43)
--- NOTE | 2018-03-31 16:05 | General Progress Note ---
Subjective - Review of Systems Events since last encounter: patient awake alert confused no signs of pain Objective - Results Result Diagrams: 03/28/18 14:45 03/28/18 14:45 Recent Labs: Laboratory Last Values WBC 8.0 Th/cmm (4.8-10.8) 03/28/18 14:45 RBC 3.73 Mil/cmm (3.80-5.10) L 03/28/18 14:45 Hgb 11.7 gm/dL (12-16) L 03/28/18 14:45 Hct 34.6 % (41.0-60) L 03/28/18 14:45 MCV 92.9 fl (81-100) 03/28/18 14:45 MCH 31.4 pg (27.0-31.0) H 03/28/18 14:45 MCHC Differential 33.8 pg (28.0-36.0) 03/28/18 14:45 RDW 12.1 % (11.5-20.0) 03/28/18 14:45 Plt Count 217 Th/cmm (150-400) 03/28/18 14:45 MPV 9.2 fl 03/28/18 14:45 Neutrophils % 68.8 % (40.0-80.0) 03/28/18 14:45 Lymphocytes % 23.4 % (20.0-50.0) 03/28/18 14:45 Monocytes % 4.2 % (2.0-10.0) 03/28/18 14:45 Eosinophils % 2.6 % (0.0-5.0) 03/28/18 14:45 Basophils % 1.0 % (0.0-2.0) 03/28/18 14:45 Sodium 135 mEq/L (136-145) L 03/28/18 14:45 Potassium 4.0 mEq/L (3.5-5.1) 03/28/18 14:45 Chloride 101 mEq/L (98-107) 03/28/18 14:45 Carbon Dioxide 27.5 mEq/L (21.0-31.0) 03/28/18 14:45 Anion Gap 10.5 (7.0-16.0) 03/28/18 14:45 BUN 29 mg/dL (7-25) H 03/28/18 14:45 Creatinine 1.8 mg/dL (0.6-1.2) H 03/28/18 14:45 Est GFR ( Amer) 36.8 ml/min (>90) 03/28/18 14:45 Est GFR (Non-Af Amer) 30.4 ml/min 03/28/18 14:45 BUN/Creatinine Ratio 16.1 03/28/18 14:45 Glucose 190 mg/dL (70-105) H 03/28/18 14:45 Hemoglobin A1c % 7.1 % (4.0-6.0) H 03/28/18 14:45 Whole Bld Lactic Acid 1.21 mmol/L (0.60-1.99) 03/28/18 14:45 Calcium 9.9 mg/dL (8.6-10.3) 03/28/18 14:45 Total Bilirubin 1.0 mg/dL (0.3-1.0) 03/28/18 14:45 AST 16 U/L (13-39) 03/28/18 14:45 ALT 10 U/L (7-52) 03/28/18 14:45 Alkaline Phosphatase 64 U/L (34-104) 03/28/18 14:45 Total Protein 8.2 gm/dL (6.0-8.3) 03/28/18 14:45 Albumin 4.5 gm/dL (3.7-5.3) 03/28/18 14:45 Globulin 3.7 gm/dL 03/28/18 14:45 Albumin/Globulin Ratio 1.2 (1.0-1.8) 03/28/18 14:45 Urine Source CLEAN C 03/28/18 14:45 Urine Color YELLOW 03/28/18 14:45 Urine Clarity HAZY (CLEAR) 03/28/18 14:45 Urine pH 6.5 (4.6 - 8.0) 03/28/18 14:45 Ur Specific [place] 1.010 (1.005-1.030) 03/28/18 14:45 Urine Protein >=300 mg/dL (NEGATIVE) 03/28/18 14:45 Urine Glucose (UA) NEGATIVE mg/dL (NEGATIVE) 03/28/18 14:45 Urine Ketones NEGATIVE mg/dL (NEGATIVE) 03/28/18 14:45 Urine Blood TRACE (NEGATIVE) 03/28/18 14:45 Urine Nitrate POSITIVE (NEGATIVE) H 03/28/18 14:45 Urine Bilirubin NEGATIVE (NEGATIVE) 03/28/18 14:45 Urine Urobilinogen 0.2 E.U./dL (0.2 - 1.0) 03/28/18 14:45 Ur Leukocyte Esterase MODERATE (NEGATIVE) H 03/28/18 14:45 Urine RBC 2-5 /hpf (0-5) 03/28/18 14:45 Urine WBC 10-25 /hpf (0-5) H 03/28/18 14:45 Ur Epithelial Cells MODERATE /lpf (FEW) 03/28/18 14:45 Urine Bacteria 3+ /hpf (NONE SEEN) H 03/28/18 14:45 Urine Opiates Screen NEGATIVE (NEGATIVE) 03/28/18 14:45 Urine Methadone Screen NEGATIVE (NEGATIVE) 03/28/18 14:45 Ur Barbiturates Screen NEGATIVE (NEGATIVE) 03/28/18 14:45 Ur Tricyclics Screen NEGATIVE (NEGATIVE) 03/28/18 14:45 Ur Phencyclidine Scrn NEGATIVE (NEGATIVE) 03/28/18 14:45 Amphetamines Screen NEGATIVE (NEGATIVE) 03/28/18 14:45 U Methamphetamines Scrn NEGATIVE (NEGATIVE) 03/28/18 14:45 U Benzodiazepines Scrn NEGATIVE (NEGATIVE) 03/28/18 14:45 U Cocaine Metab Screen NEGATIVE (NEGATIVE) 03/28/18 14:45 U Cannabinoids Screen NEGATIVE (NEGATIVE) 03/28/18 14:45 - Physical Exam Vitals and I&O: Vital Signs Temp 97.5 F 03/31/18 15:34 Pulse 62 03/31/18 15:34 Resp 20 03/31/18 15:34 BP 158/84 03/31/18 15:34 Pulse Ox 98 03/31/18 15:34 Intake & Output 03/30/18 03/31/18 03/31/18 18:59 06:59 18:59 Intake Total 700 360 Balance 700 360 Intake: Oral 700 360 Other: # Voids 3 1 # Bowel Movements 1 0 Active Medications: Current Medications Acetaminophen (Tylenol) 650 mg PO Q4HR PRN PRN Reason: Mild Pain / Temp above 100 Stop: 05/27/18 22:06 Acetaminophen (Tylenol) 325 mg PO Q4HR PRN PRN Reason: Fever > 101 Stop: 10/02/18 22:53 Alprazolam (Xanax) 0.25 mg PO Q12H PRN; Protocol PRN Reason: Anxiety Stop: 05/27/18 23:01 Last Admin: 03/29/18 20:40 Dose: 0.25 mg Amlodipine Besylate (Norvasc) 10 mg PO DAILY [facility] Stop: 05/28/18 08:59 Last Admin: 03/31/18 09:50 Dose: 10 mg Aripiprazole (Abilify) 2 mg PO DAILY [facility]; Protocol Stop: 05/28/18 08:59 Last Admin: 03/31/18 09:49 Dose: 2 mg Aspirin (Aspirin Chewable) 81 mg PO DAILY [facility] Stop: 05/28/18 08:59 Last Admin: 03/31/18 09:49 Dose: 81 mg Atorvastatin Calcium (Lipitor) 10 mg PO DAILY [facility] Stop: 05/28/18 08:59 Last Admin: 03/31/18 09:49 Dose: 10 mg Docusate Sodium (Colace) 100 mg PO DAILY [facility] Stop: 05/28/18 08:59 Last Admin: 03/31/18 09:49 Dose: 100 mg Lactobacillus Rhamnosus (Culturelle 15b) 1 each PO DAILY [facility] Stop: 05/30/18 13:59 Metoprolol Tartrate (Lopressor) 25 mg PO TID [facility] Stop: 05/28/18 08:59 Last Admin: 03/31/18 09:49 Dose: 25 mg Miscellaneous (Probiotic Screen) 1 ea MC PRN PRN PRN Reason: PROTOCOL Stop: 05/30/18 09:25 Nitroglycerin (Nitrostat) 0.4 mg SL Q5MIN PRN PRN Reason: Chest Pain Stop: 05/27/18 22:53 Trimethoprim/Sulfamethoxazole (Bactrim Ds) 1 tab PO BID [facility] Stop: 04/06/18 09:01 Last Admin: 03/31/18 09:49 Dose: 1 tab
[2018-04-01] MEDS: Sulfamethoxazole/TMP 800/160mg Tab PO SCH ×2 (08:40→16:27)
[2018-04-01] MEDS: Atorvastatin Calcium 10 MG TAB PO SCH (08:40)
[2018-04-01] MEDS: Lactobacillus Rhamnosus GG 15 Billion CFU CAP.SPRINK PO SCH (08:40)
[2018-04-01] MEDS: Aspirin 81mg Chewable Tab PO SCH (08:40)
[2018-04-02] MEDS: Lactobacillus Rhamnosus GG 15 Billion CFU CAP.SPRINK PO SCH (08:38)
[2018-04-02] MEDS: Aspirin 81mg Chewable Tab PO SCH (08:38)
[2018-04-02] MEDS: Atorvastatin Calcium 10 MG TAB PO SCH (08:38)
[2018-04-02] MEDS: Sulfamethoxazole/TMP 800/160mg Tab PO SCH (08:39)
--- NOTE | 2018-04-02 09:02 | General Progress Note ---
Subjective - Review of Systems Events since last encounter: patient denies pain confused Objective - Results Result Diagrams: 03/28/18 14:45 03/28/18 14:45 Recent Labs: Laboratory Last Values WBC 8.0 Th/cmm (4.8-10.8) 03/28/18 14:45 RBC 3.73 Mil/cmm (3.80-5.10) L 03/28/18 14:45 Hgb 11.7 gm/dL (12-16) L 03/28/18 14:45 Hct 34.6 % (41.0-60) L 03/28/18 14:45 MCV 92.9 fl (81-100) 03/28/18 14:45 MCH 31.4 pg (27.0-31.0) H 03/28/18 14:45 MCHC Differential 33.8 pg (28.0-36.0) 03/28/18 14:45 RDW 12.1 % (11.5-20.0) 03/28/18 14:45 Plt Count 217 Th/cmm (150-400) 03/28/18 14:45 MPV 9.2 fl 03/28/18 14:45 Neutrophils % 68.8 % (40.0-80.0) 03/28/18 14:45 Lymphocytes % 23.4 % (20.0-50.0) 03/28/18 14:45 Monocytes % 4.2 % (2.0-10.0) 03/28/18 14:45 Eosinophils % 2.6 % (0.0-5.0) 03/28/18 14:45 Basophils % 1.0 % (0.0-2.0) 03/28/18 14:45 Sodium 135 mEq/L (136-145) L 03/28/18 14:45 Potassium 4.0 mEq/L (3.5-5.1) 03/28/18 14:45 Chloride 101 mEq/L (98-107) 03/28/18 14:45 Carbon Dioxide 27.5 mEq/L (21.0-31.0) 03/28/18 14:45 Anion Gap 10.5 (7.0-16.0) 03/28/18 14:45 BUN 29 mg/dL (7-25) H 03/28/18 14:45 Creatinine 1.8 mg/dL (0.6-1.2) H 03/28/18 14:45 Est GFR ( Amer) 36.8 ml/min (>90) 03/28/18 14:45 Est GFR (Non-Af Amer) 30.4 ml/min 03/28/18 14:45 BUN/Creatinine Ratio 16.1 03/28/18 14:45 Glucose 190 mg/dL (70-105) H 03/28/18 14:45 Hemoglobin A1c % 7.1 % (4.0-6.0) H 03/28/18 14:45 Whole Bld Lactic Acid 1.21 mmol/L (0.60-1.99) 03/28/18 14:45 Calcium 9.9 mg/dL (8.6-10.3) 03/28/18 14:45 Total Bilirubin 1.0 mg/dL (0.3-1.0) 03/28/18 14:45 AST 16 U/L (13-39) 03/28/18 14:45 ALT 10 U/L (7-52) 03/28/18 14:45 Alkaline Phosphatase 64 U/L (34-104) 03/28/18 14:45 Total Protein 8.2 gm/dL (6.0-8.3) 03/28/18 14:45 Albumin 4.5 gm/dL (3.7-5.3) 03/28/18 14:45 Globulin 3.7 gm/dL 03/28/18 14:45 Albumin/Globulin Ratio 1.2 (1.0-1.8) 03/28/18 14:45 Urine Source CLEAN C 03/28/18 14:45 Urine Color YELLOW 03/28/18 14:45 Urine Clarity HAZY (CLEAR) 03/28/18 14:45 Urine pH 6.5 (4.6 - 8.0) 03/28/18 14:45 Ur Specific [place] 1.010 (1.005-1.030) 03/28/18 14:45 Urine Protein >=300 mg/dL (NEGATIVE) 03/28/18 14:45 Urine Glucose (UA) NEGATIVE mg/dL (NEGATIVE) 03/28/18 14:45 Urine Ketones NEGATIVE mg/dL (NEGATIVE) 03/28/18 14:45 Urine Blood TRACE (NEGATIVE) 03/28/18 14:45 Urine Nitrate POSITIVE (NEGATIVE) H 03/28/18 14:45 Urine Bilirubin NEGATIVE (NEGATIVE) 03/28/18 14:45 Urine Urobilinogen 0.2 E.U./dL (0.2 - 1.0) 03/28/18 14:45 Ur Leukocyte Esterase MODERATE (NEGATIVE) H 03/28/18 14:45 Urine RBC 2-5 /hpf (0-5) 03/28/18 14:45 Urine WBC 10-25 /hpf (0-5) H 03/28/18 14:45 Ur Epithelial Cells MODERATE /lpf (FEW) 03/28/18 14:45 Urine Bacteria 3+ /hpf (NONE SEEN) H 03/28/18 14:45 Urine Opiates Screen NEGATIVE (NEGATIVE) 03/28/18 14:45 Urine Methadone Screen NEGATIVE (NEGATIVE) 03/28/18 14:45 Ur Barbiturates Screen NEGATIVE (NEGATIVE) 03/28/18 14:45 Ur Tricyclics Screen NEGATIVE (NEGATIVE) 03/28/18 14:45 Ur Phencyclidine Scrn NEGATIVE (NEGATIVE) 03/28/18 14:45 Amphetamines Screen NEGATIVE (NEGATIVE) 03/28/18 14:45 U Methamphetamines Scrn NEGATIVE (NEGATIVE) 03/28/18 14:45 U Benzodiazepines Scrn NEGATIVE (NEGATIVE) 03/28/18 14:45 U Cocaine Metab Screen NEGATIVE (NEGATIVE) 03/28/18 14:45 U Cannabinoids Screen NEGATIVE (NEGATIVE) 03/28/18 14:45 - Physical Exam Vitals and I&O: Vital Signs Temp 97.8 F 04/02/18 06:36 Pulse 62 04/02/18 08:39 Resp 20 04/02/18 06:36 BP 140/67 04/02/18 08:39 Pulse Ox 98 04/02/18 06:36 Intake & Output 04/01/18 04/02/18 04/02/18 18:59 06:59 18:59 Intake Total 360 Balance 360 Weight (lbs) 59.421 kg Intake: Oral 360 Other: # Voids 2 2 # Bowel Movements 0 0 Weight Source Bedscale Active Medications: Current Medications Acetaminophen (Tylenol) 650 mg PO Q4HR PRN PRN Reason: Mild Pain / Temp above 100 Stop: 05/27/18 22:06 Acetaminophen (Tylenol) 325 mg PO Q4HR PRN PRN Reason: Fever > 101 Stop: 05/27/18 22:53 Alprazolam (Xanax) 0.25 mg PO Q12H PRN; Protocol PRN Reason: Anxiety Stop: 05/27/18 23:01 Last Admin: 03/31/18 17:42 Dose: 0.25 mg Amlodipine Besylate (Norvasc) 10 mg PO DAILY [facility] Stop: 05/28/18 08:59 Last Admin: 04/02/18 08:39 Dose: 10 mg Aripiprazole (Abilify) 2 mg PO DAILY [facility]; Protocol Stop: 05/28/18 08:59 Last Admin: 04/02/18 08:38 Dose: 2 mg Aspirin (Aspirin Chewable) 81 mg PO DAILY [facility] Stop: 05/28/18 08:59 Last Admin: 04/02/18 08:38 Dose: 81 mg Atorvastatin Calcium (Lipitor) 10 mg PO DAILY [facility] Stop: 05/28/18 08:59 Last Admin: 04/02/18 08:38 Dose: 10 mg Docusate Sodium (Colace) 100 mg PO DAILY [facility] Stop: 05/28/18 08:59 Last Admin: 04/02/18 08:38 Dose: 100 mg Lactobacillus Rhamnosus (Culturelle 15b) 1 each PO DAILY [facility] Stop: 05/30/18 13:59 Last Admin: 04/02/18 08:38 Dose: 1 each Metoprolol Tartrate (Lopressor) 25 mg PO TID [facility] Stop: 05/28/18 08:59 Last Admin: 04/02/18 08:39 Dose: 25 mg Miscellaneous (Probiotic Screen) 1 ea MC PRN PRN PRN Reason: PROTOCOL Stop: 05/30/18 09:25 Nitroglycerin (Nitrostat) 0.4 mg SL Q5MIN PRN PRN Reason: Chest Pain Stop: 05/27/18 22:53 Trimethoprim/Sulfamethoxazole (Bactrim Ds) 1 tab PO BID [facility] Stop: 04/06/18 09:01 Last Admin: 04/02/18 08:39 Dose: 1 tab Nutritional Asmnt/Malnutr-PDOC - Dietary Evaluation Malnutrition Findings (Please click <Entered> for more info): Nutritional Asmnt/Malnutrition Start: 04/01/18 14: 01 Text: Status: Complete Freq: Protocol: Document 04/01/18 14:01 LCHENG (Rec: 04/01/18 14:26 [email or web address] Nutritional Asmnt/Malnutrition Patient General Information Nutritional Screening Moderate Risk Diagnosis psychosis Pertinent Medical Hx/Surgical Hx HTN, CAD, anemia, difficulty walking, weakness, CHF, dyslipidemia, arthritis Subjective Information Pt seen walking in hallway, alert. Pt stated she is eating fine. per EMR, PO intake 25- 50%. Spoke with THERESE Salazar, RN reported pt was depressed and confused, did not want eat more. Pt did not eat breakfast just lying in bed in the morning. Current Diet Order/ Nutrition Support ARMANDO Pertinent Medications lipitor, colace, culturelle Pertinent Labs 03/28 Na 135, BUN 29, Cr 1.8, glucose 190, A1c 7.1 Nutritional Hx/Data Height 1.55 m Height (Calculated Centimeters) 154.9 Current Weight (lbs) 59.421 kg Weight (Calculated Kilograms) 59.4 Weight (Calculated Grams) 80018.6 [place] Body Weight 105 Body Mass Index (BMI) 24.7 Weight Status Approriate GI Symptoms GI Symptoms None Last BM 04/01 Difficult in: None Skin Integrity/Comment: refused skin assessment Current %PO Poor (25-49%) Estimated Nutritional Goals BEE in Kcals: Using Current wt Calories/Kcals/Kg 25-30 Kcals Calculated 2480-5436 Protein: Using Current wt Protein g/k-1.2 Protein Calculated 60-72 Fluid: ml 1500-1800ml (1ml/kcal) Nutritional Problem 1. Problem Problem altered nutrition related labs Etiology endocrine dysfunction Signs/Symptoms: glucose 190, A1c 7.1 Malnutrition Alert Is there a minimum of two criteria No selected? Query Text:Check all the applicable criteria. A minimum of two criteria are recommended for diagnosis of either severe or non-severe malnutrition. Malnutrition Related to Morbid Obesity Malnutrition related to morbid obesity No Intervention/Recommendation Comments 1. Continue with current diet as ordered considering PO intake is low. Monitor glucose level. Will consider adding CCHO restriction when PO intake improved >75%. 2. Monitor PO intake, wt, labs and skin integrity 3. F/U as moderate risk in 3-5 days, 04/04-04/06, PO check 04/03 Expected Outcomes/Goals Expected Outcomes/Goals 1. PO intake to meet at least 75% of nutritional needs. 2. Wt stability, skin to remain intact, labs to approach WNL.
--- NOTE | 2018-04-04 22:50 | Progress Notes ---
DATE: 03/30/2018 SUBJECTIVE: Chart reviewed and the patient interviewed. Also, discussed the patient's condition with the staff and reviewed records and labs. The patient also ____ from the staff today. The patient is a less anxious and less irritable. Also, less agitated. The patient also is able to verbalize her needs in [place] language. The patient also is cooperative with her treatment and compliant with taking her medications. The patient did take Abilify yesterday. ASSESSMENT: The patient seems to be slightly calmer. TREATMENT PLAN: Continue to monitor her behavior and condition closely and continue adjusting psychotropic medications and followup. JOB# [id number]
--- NOTE | 2018-04-05 07:31 | Progress Notes ---
DATE: 03/31/2018 DATE: 03/31/2018 SUBJECTIVE: Chart reviewed and the patient interviewed. Also discussed the patient's condition with the staff and reviewed the records and labs. The patient is still confused and is still in angry and in irritable mood for being in the hospital. The patient said that she has a family in [place] and that she can go there. That was not confirmed by social services analyst. The patient also is reluctant to take medications and she still seems to be suspicious and paranoid and is taking Abilify lots of problems following directions. We will follow up. Otherwise, the patient is isolative. Also, because of language barrier, the patient tends to isolate herself most of the time with minimum interaction with others. ASSESSMENT: The patient is still psychotic. TREATMENT PLAN: Continue Abilify at same dose. Also, continue to work with case reviewer in regard to discharge plans and placement issue and will continue to follow up. JOB# [id number]
--- NOTE | 2018-04-06 06:33 | Discharge Summary ---
DATE OF DISCHARGE: 04/02/2018 PATIENT'S AGE: 62. SEX: Female. PHYSICIAN: Anson Dixon MD, MPH FINAL DIAGNOSES: Depressive disorder, unspecified, with psychotic features. PRIMARY DIAGNOSES: Depressive disorder, unspecified, with psychotic features. MEDICAL DIAGNOSIS: Hypertension. REASON FOR HOSPITALIZATION: The patient was admitted to the hospital from [facility] because of confusion and increased agitation and tried to get out of the facility and striking out at staff. HOSPITAL COURSE: The patient continued to be confused and agitated and wanted to leave. The patient also was not able to formulate any safe plan for her self-care. She also was suspicious and paranoid and seemed to be depressed with mood swings. The patient was not suicidal or homicidal. She also was started on Abilify on a dose of 2 mg every day. Gradually, the patient's affect was brighter. The patient was less agitated and less irritable. She also was stating that she has family in [place]. The patient was accepted back in [facility] and the patient returned there. The patient's communication was through Palau[place] language and the staff did help with translation. PHYSICAL EXAMINATION: The patient was basically within normal. AFTER DISCHARGE PLAN: The patient returned to [facility] with plans for outpatient. EXPECTED OUTCOME AFTER DISCHARGE: Fair if the patient continued to take psychotropic medications and follow up with discharge plans. JOB# [id number]
--- NOTE | 2018-04-06 14:04 | Progress Notes ---
DATE: 04/01/2018 SUBJECTIVE: Chart reviewed and the patient interviewed. Also discussed the patient's condition with the staff and reviewed the records and labs. The patient continued to be in a depressed mood and continued to be withdrawn and calm. The patient also is still slightly suspicious and paranoid. She also is still confused in regard to discharge plans and in regard to placement issue. The patient came from [facility] and the question whether she is able to return there and the patient does not want to return to a convalescent hospital. At the same time, the patient continued to take Abilify with no side effects. ASSESSMENT: The patient is still depressed and slightly paranoid. TREATMENT PLAN: Continue monitoring her behavior closely and continue to ____ continue Abilify same dose and follow up. JOB# [id number]
== END 2018-04-02 13:40 | DRG 885 ==
LOC: ER 14:12 → GERO 18:37
PROVIDERS: ADMIT Psychiatry & Neurology Psychiatry; ATTEND Psychiatry & Neurology Psychiatry
DX: F32.3 Major depressive disorder, single episode, severe with psychotic features (principal); I11.0 Hypertensive heart disease with heart failure; N39.0 Urinary tract infection, site not specified; F41.9 Anxiety disorder, unspecified; M19.90 Unspecified osteoarthritis, unspecified site; I50.9 Heart failure, unspecified; D64.9 Anemia, unspecified; E86.0 Dehydration; E78.5 Hyperlipidemia, unspecified; I25.10 Atherosclerotic heart disease of native coronary artery without angina pectoris; Z88.0 Allergy status to penicillin
CPT/HCPCS: 36415-UA; 71045-TC; 80053-TC; 80307; 81001-TC; 83036-90; 83605; 85025-TC; 87086-90; 93005; J1956; J7030; Z7610